=== PATIENT | female | born 1945 | race Two or more races ===

== ENCOUNTER 2017-07-09 08:20 | Outpatient (CLI) | payer OTHER | END 2017-07-09 14:47 | disposition home or self-care (01) | LOC: LAB 08:20 → MAMO-SONO 09:15 → LAB 14:47 | DX: C50.411 Malignant neoplasm of upper-outer quadrant of right female breast (principal); Z85.3 Personal history of malignant neoplasm of breast; B18.2 Chronic viral hepatitis C; D70.3 Neutropenia due to infection; E55.9 Vitamin D deficiency, unspecified; M81.0 Age-related osteoporosis without current pathological fracture; D50.8 Other iron deficiency anemias; D51.8 Other vitamin B12 deficiency anemias; I10 Essential (primary) hypertension; K90.89 Other intestinal malabsorption; E03.8 Other specified hypothyroidism; R97.0 Elevated carcinoembryonic antigen [CEA]; R97.8 Other abnormal tumor markers ==

== ENCOUNTER 2017-07-09 09:03 | Outpatient (CLI) | payer OTHER | END 2017-07-09 09:28 | disposition home or self-care (01) | LOC: SONOGRAMA 09:03 | DX: C50.411 Malignant neoplasm of upper-outer quadrant of right female breast (principal); Z85.3 Personal history of malignant neoplasm of breast; B18.2 Chronic viral hepatitis C; D70.3 Neutropenia due to infection; E55.9 Vitamin D deficiency, unspecified; M81.0 Age-related osteoporosis without current pathological fracture ==

== ENCOUNTER 2017-07-09 09:10 | Outpatient (CLI) | payer OTHER | END 2017-07-09 09:24 | disposition home or self-care (01) | LOC: RAD 09:10 | DX: C50.411 Malignant neoplasm of upper-outer quadrant of right female breast (principal); Z85.3 Personal history of malignant neoplasm of breast; B18.2 Chronic viral hepatitis C; D70.3 Neutropenia due to infection; E55.9 Vitamin D deficiency, unspecified; M81.0 Age-related osteoporosis without current pathological fracture ==

== ENCOUNTER → 2017-07-30 | Outpatient (CLI) | payer OTHER | END | disposition home or self-care (01) | LOC: RAD 11:05 | DX: C50.411 Malignant neoplasm of upper-outer quadrant of right female breast (principal); Z85.3 Personal history of malignant neoplasm of breast; B18.2 Chronic viral hepatitis C; D70.3 Neutropenia due to infection; E55.9 Vitamin D deficiency, unspecified; M81.0 Age-related osteoporosis without current pathological fracture; N20.0 Calculus of kidney; N21.0 Calculus in bladder ==

== ENCOUNTER → 2017-08-08 08:39 | Outpatient (CLI) | payer OTHER | END | disposition home or self-care (01) | LOC: LAB 08:39 | DX: M81.0 Age-related osteoporosis without current pathological fracture (principal); E55.9 Vitamin D deficiency, unspecified ==

== ENCOUNTER → 2017-09-03 09:14 | Outpatient (CLI) | payer OTHER | END | disposition home or self-care (01) | LOC: RAD 09:14 | DX: M16.11 Unilateral primary osteoarthritis, right hip (principal); M16.12 Unilateral primary osteoarthritis, left hip ==

== ENCOUNTER → 2017-10-21 | Outpatient (CLI) | payer OTHER | END | disposition home or self-care (01) | LOC: LAB 07:48 | DX: C50.411 Malignant neoplasm of upper-outer quadrant of right female breast (principal); Z85.3 Personal history of malignant neoplasm of breast; B18.2 Chronic viral hepatitis C; D70.3 Neutropenia due to infection; E55.9 Vitamin D deficiency, unspecified; M81.0 Age-related osteoporosis without current pathological fracture; N20.0 Calculus of kidney; N21.0 Calculus in bladder; D50.8 Other iron deficiency anemias; D51.8 Other vitamin B12 deficiency anemias; I10 Essential (primary) hypertension; K90.89 Other intestinal malabsorption; D68.8 Other specified coagulation defects; R97.0 Elevated carcinoembryonic antigen [CEA] ==

== ENCOUNTER 2017-10-27 09:56 | Outpatient (CLI) | payer OTHER | END 2017-10-27 10:30 | disposition home or self-care (01) | LOC: NUCLEAR 09:56 | DX: M81.0 Age-related osteoporosis without current pathological fracture (principal) ==

== ENCOUNTER 2017-12-12 07:33 | Outpatient (CLI) | payer OTHER | END 2017-12-12 07:47 | disposition home or self-care (01) | LOC: LAB 07:33 | DX: C50.411 Malignant neoplasm of upper-outer quadrant of right female breast (principal); Z85.3 Personal history of malignant neoplasm of breast; B18.2 Chronic viral hepatitis C; D70.3 Neutropenia due to infection; E55.9 Vitamin D deficiency, unspecified; M81.0 Age-related osteoporosis without current pathological fracture; N20.0 Calculus of kidney; N21.0 Calculus in bladder; M10.9 Gout, unspecified; E21.2 Other hyperparathyroidism; E83.52 Hypercalcemia ==

== ENCOUNTER 2017-12-16 09:16 | Outpatient (CLI) | payer OTHER | END 2017-12-16 09:23 | disposition home or self-care (01) | LOC: SONOGRAMA 09:16 | DX: K82.4 Cholesterolosis of gallbladder (principal) ==

== ENCOUNTER 2017-12-19 08:25 | Outpatient (CLI) | payer OTHER | END 2017-12-19 08:34 | disposition home or self-care (01) | LOC: LAB 08:25 | DX: C50.411 Malignant neoplasm of upper-outer quadrant of right female breast (principal); Z85.3 Personal history of malignant neoplasm of breast; B18.2 Chronic viral hepatitis C; D70.3 Neutropenia due to infection; E55.9 Vitamin D deficiency, unspecified; M81.0 Age-related osteoporosis without current pathological fracture; N20.0 Calculus of kidney; N21.0 Calculus in bladder; M10.9 Gout, unspecified; E21.3 Hyperparathyroidism, unspecified; E83.52 Hypercalcemia ==

== ENCOUNTER 2018-01-07 08:44 | Outpatient (CLI) | payer OTHER | END 2018-01-07 08:49 | disposition home or self-care (01) | LOC: LAB 08:44 | DX: Z12.11 Encounter for screening for malignant neoplasm of colon (principal) ==

== ENCOUNTER 2018-01-12 09:39 | Outpatient (CLI) | payer OTHER | END 2018-01-12 11:13 | disposition home or self-care (01) | LOC: TOM 09:39 | DX: N20.0 Calculus of kidney (principal) ==

== ENCOUNTER 2018-01-14 10:34 | Outpatient (CLI) | payer OTHER | END 2018-01-14 10:38 | disposition home or self-care (01) | LOC: LAB 10:34 | DX: N39.0 Urinary tract infection, site not specified (principal) ==

== ENCOUNTER 2018-01-16 10:24 | Outpatient (CLI) | payer OTHER | END 2018-01-16 10:31 | disposition home or self-care (01) | LOC: NUCLEAR 10:24 | DX: E83.52 Hypercalcemia (principal); C50.411 Malignant neoplasm of upper-outer quadrant of right female breast; Z85.3 Personal history of malignant neoplasm of breast; B18.2 Chronic viral hepatitis C; D70.3 Neutropenia due to infection; E55.9 Vitamin D deficiency, unspecified; M81.0 Age-related osteoporosis without current pathological fracture; N20.0 Calculus of kidney; N21.0 Calculus in bladder; E21.0 Primary hyperparathyroidism; D35.1 Benign neoplasm of parathyroid gland | CPT/HCPCS: 78070; A9500 ==

== ENCOUNTER 2018-02-18 09:03 | Outpatient (CLI) | payer OTHER | END 2018-02-18 09:18 | disposition home or self-care (01) | LOC: LAB 09:03 | DX: C50.411 Malignant neoplasm of upper-outer quadrant of right female breast (principal); Z85.3 Personal history of malignant neoplasm of breast; B18.2 Chronic viral hepatitis C; D70.3 Neutropenia due to infection; E55.9 Vitamin D deficiency, unspecified; M81.0 Age-related osteoporosis without current pathological fracture; N20.0 Calculus of kidney; N21.0 Calculus in bladder; E21.0 Primary hyperparathyroidism; D35.1 Benign neoplasm of parathyroid gland; D50.8 Other iron deficiency anemias; I10 Essential (primary) hypertension; D51.8 Other vitamin B12 deficiency anemias; R97.0 Elevated carcinoembryonic antigen [CEA]; R97.8 Other abnormal tumor markers ==

== ENCOUNTER 2018-04-01 09:19 | Outpatient (CLI) | payer OTHER | END 2018-04-01 09:24 | disposition home or self-care (01) | LOC: LAB 09:19 | DX: N81.0 Urethrocele (principal); E55.9 Vitamin D deficiency, unspecified ==

== ENCOUNTER 2018-05-02 09:20 | Outpatient (CLI) | payer OTHER | END 2018-05-02 09:26 | disposition home or self-care (01) | LOC: SONOGRAMA 09:20 | DX: M65.811 Other synovitis and tenosynovitis, right shoulder (principal) ==

== ENCOUNTER → 2018-06-03 08:23 | Outpatient (CLI) | payer OTHER | END | disposition home or self-care (01) | LOC: LAB 08:23 | DX: E83.51 Hypocalcemia (principal); M81.0 Age-related osteoporosis without current pathological fracture ==

== ENCOUNTER 2018-08-19 09:53 | Outpatient (CLI) | payer OTHER | END 2018-08-19 10:09 | disposition home or self-care (01) | LOC: LAB 09:53 | DX: E55.9 Vitamin D deficiency, unspecified (principal); C50.411 Malignant neoplasm of upper-outer quadrant of right female breast; Z85.3 Personal history of malignant neoplasm of breast; D70.3 Neutropenia due to infection; M81.0 Age-related osteoporosis without current pathological fracture; N20.0 Calculus of kidney; N21.0 Calculus in bladder; D35.1 Benign neoplasm of parathyroid gland; D50.8 Other iron deficiency anemias; D51.8 Other vitamin B12 deficiency anemias; I10 Essential (primary) hypertension; R97.0 Elevated carcinoembryonic antigen [CEA]; R97.8 Other abnormal tumor markers; K90.89 Other intestinal malabsorption ==

== ENCOUNTER → 2018-08-22 | Outpatient (CLI) | payer OTHER | END | disposition home or self-care (01) | LOC: MAMO-SONO 08:45 → RAD 08:49 | DX: C50.411 Malignant neoplasm of upper-outer quadrant of right female breast (principal); Z85.3 Personal history of malignant neoplasm of breast; B18.2 Chronic viral hepatitis C; D70.3 Neutropenia due to infection; E55.9 Vitamin D deficiency, unspecified; M81.0 Age-related osteoporosis without current pathological fracture; N20.0 Calculus of kidney; N21.0 Calculus in bladder; E21.0 Primary hyperparathyroidism; D35.1 Benign neoplasm of parathyroid gland ==

== ENCOUNTER 2018-10-07 08:13 | Outpatient (CLI) | payer OTHER | END 2018-10-07 08:24 | disposition home or self-care (01) | LOC: LAB 08:13 | DX: E55.9 Vitamin D deficiency, unspecified (principal); M81.0 Age-related osteoporosis without current pathological fracture ==

== ENCOUNTER → 2019-01-27 09:36 | Outpatient (CLI) | payer OTHER | END | disposition home or self-care (01) | LOC: LAB 09:36 | DX: B96.81 Helicobacter pylori [H. pylori] as the cause of diseases classified elsewhere (principal) ==

== ENCOUNTER 2019-02-17 08:05 | Outpatient (CLI) | payer OTHER | END 2019-02-17 12:13 | disposition home or self-care (01) | LOC: LAB 08:05 | DX: D50.8 Other iron deficiency anemias (principal); D51.8 Other vitamin B12 deficiency anemias; E78.2 Mixed hyperlipidemia; C50.411 Malignant neoplasm of upper-outer quadrant of right female breast; R97.0 Elevated carcinoembryonic antigen [CEA]; R91.8 Other nonspecific abnormal finding of lung field; D51.1 Vitamin B12 deficiency anemia due to selective vitamin B12 malabsorption with proteinuria; I10 Essential (primary) hypertension; K90.89 Other intestinal malabsorption ==

== ENCOUNTER 2019-05-03 07:47 | Outpatient (CLI) | payer OTHER | END 2019-05-03 07:52 | disposition home or self-care (01) | LOC: LAB 07:47 | DX: R73.09 Other abnormal glucose (principal); E78.00 Pure hypercholesterolemia, unspecified; E55.9 Vitamin D deficiency, unspecified; M81.0 Age-related osteoporosis without current pathological fracture ==

== ENCOUNTER 2019-08-18 08:08 | Outpatient (CLI) | payer OTHER | END 2019-08-18 08:13 | disposition home or self-care (01) | LOC: LAB 08:08 | PROVIDERS: ATTEND Internal Medicine Hematology & Oncology | DX: D50.8 Other iron deficiency anemias (principal); I10 Essential (primary) hypertension; C50.411 Malignant neoplasm of upper-outer quadrant of right female breast; Z85.3 Personal history of malignant neoplasm of breast; B18.2 Chronic viral hepatitis C; D70.3 Neutropenia due to infection; E55.9 Vitamin D deficiency, unspecified; M81.0 Age-related osteoporosis without current pathological fracture; N20.0 Calculus of kidney; N21.0 Calculus in bladder; D35.1 Benign neoplasm of parathyroid gland; D51.8 Other vitamin B12 deficiency anemias; R97.0 Elevated carcinoembryonic antigen [CEA]; R97.8 Other abnormal tumor markers ==

== ENCOUNTER 2019-08-23 07:30 | Outpatient (CLI) | payer OTHER | END 2019-08-23 07:40 | disposition home or self-care (01) | LOC: RAD 07:30 → MAMO-SONO 07:45 | PROVIDERS: ATTEND Internal Medicine Hematology & Oncology | DX: C50.411 Malignant neoplasm of upper-outer quadrant of right female breast (principal); Z85.3 Personal history of malignant neoplasm of breast; B18.2 Chronic viral hepatitis C; D70.3 Neutropenia due to infection; E55.9 Vitamin D deficiency, unspecified; M81.0 Age-related osteoporosis without current pathological fracture; N20.0 Calculus of kidney; N21.0 Calculus in bladder; D35.1 Benign neoplasm of parathyroid gland ==

== ENCOUNTER 2019-10-30 13:42 | Outpatient (CLI) | payer OTHER | END 2019-10-30 13:58 | disposition home or self-care (01) | LOC: NUCLEAR 13:42 | PROVIDERS: ATTEND Internal Medicine Rheumatology | DX: M81.0 Age-related osteoporosis without current pathological fracture (principal) ==

== ENCOUNTER → 2020-02-04 08:06 | Outpatient (CLI) | payer OTHER | END | disposition home or self-care (01) | LOC: LAB 08:06 | PROVIDERS: ATTEND Internal Medicine Rheumatology | DX: E55.9 Vitamin D deficiency, unspecified (principal) ==

== ENCOUNTER 2020-02-13 08:30 | Outpatient (CLI) | payer OTHER | END 2020-02-13 08:38 | disposition home or self-care (01) | LOC: LAB 08:30 | PROVIDERS: ATTEND Internal Medicine Hematology & Oncology | DX: C50.411 Malignant neoplasm of upper-outer quadrant of right female breast (principal); Z85.3 Personal history of malignant neoplasm of breast; B18.2 Chronic viral hepatitis C; D70.3 Neutropenia due to infection; E55.9 Vitamin D deficiency, unspecified; D50.8 Other iron deficiency anemias; I10 Essential (primary) hypertension; D51.8 Other vitamin B12 deficiency anemias; C50.919 Malignant neoplasm of unspecified site of unspecified female breast; R97.8 Other abnormal tumor markers; R97.0 Elevated carcinoembryonic antigen [CEA]; M81.0 Age-related osteoporosis without current pathological fracture; N20.0 Calculus of kidney; N21.0 Calculus in bladder; E21.0 Primary hyperparathyroidism; D35.1 Benign neoplasm of parathyroid gland ==

== ENCOUNTER 2020-07-05 08:00 | Outpatient (CLI) | payer OTHER | END 2020-07-05 08:05 | disposition home or self-care (01) | LOC: LAB 08:00 | PROVIDERS: ATTEND General Practice | DX: D64.9 Anemia, unspecified (principal); E78.2 Mixed hyperlipidemia; R73.09 Other abnormal glucose; E03.9 Hypothyroidism, unspecified; E56.9 Vitamin deficiency, unspecified; E55.9 Vitamin D deficiency, unspecified; I11.9 Hypertensive heart disease without heart failure; Z12.11 Encounter for screening for malignant neoplasm of colon ==

== ENCOUNTER → 2020-08-30 08:03 | Outpatient (CLI) | payer OTHER | END | disposition home or self-care (01) | LOC: LAB 08:03 → RAD 08:03 | PROVIDERS: ATTEND Internal Medicine Hematology & Oncology | DX: C50.411 Malignant neoplasm of upper-outer quadrant of right female breast (principal); Z85.3 Personal history of malignant neoplasm of breast; B18.2 Chronic viral hepatitis C; D70.3 Neutropenia due to infection; E55.9 Vitamin D deficiency, unspecified; M81.0 Age-related osteoporosis without current pathological fracture; N20.0 Calculus of kidney; N21.0 Calculus in bladder; E21.0 Primary hyperparathyroidism; D35.1 Benign neoplasm of parathyroid gland; D50.8 Other iron deficiency anemias; R79.9 Abnormal finding of blood chemistry, unspecified; I10 Essential (primary) hypertension; R74.02 Elevation of levels of lactic acid dehydrogenase [LDH]; K76.89 Other specified diseases of liver; D51.8 Other vitamin B12 deficiency anemias; E03.8 Other specified hypothyroidism; C50.919 Malignant neoplasm of unspecified site of unspecified female breast; R97.8 Other abnormal tumor markers; R97.0 Elevated carcinoembryonic antigen [CEA] ==

== ENCOUNTER 2020-09-16 07:55 | Outpatient (CLI) | payer OTHER | END 2020-09-16 08:04 | disposition home or self-care (01) | LOC: SONOGRAMA 07:55 → MAMO-SONO 08:15 | PROVIDERS: ATTEND Internal Medicine Hematology & Oncology | DX: N20.0 Calculus of kidney (principal); N21.0 Calculus in bladder; B18.2 Chronic viral hepatitis C; D70.3 Neutropenia due to infection; C50.411 Malignant neoplasm of upper-outer quadrant of right female breast; Z85.3 Personal history of malignant neoplasm of breast; E55.9 Vitamin D deficiency, unspecified; M81.0 Age-related osteoporosis without current pathological fracture; D35.1 Benign neoplasm of parathyroid gland ==

== ENCOUNTER 2021-02-14 07:57 | Outpatient (CLI) | payer OTHER | END 2021-02-14 07:58 | disposition home or self-care (01) | LOC: LAB 07:57 | PROVIDERS: ATTEND Internal Medicine Hematology & Oncology | DX: D64.89 Other specified anemias (principal); E78.2 Mixed hyperlipidemia; E03.8 Other specified hypothyroidism; E56.9 Vitamin deficiency, unspecified; E55.9 Vitamin D deficiency, unspecified; I11.9 Hypertensive heart disease without heart failure; D50.8 Other iron deficiency anemias; R79.89 Other specified abnormal findings of blood chemistry; I10 Essential (primary) hypertension; R74.02 Elevation of levels of lactic acid dehydrogenase [LDH]; K76.89 Other specified diseases of liver; D51.8 Other vitamin B12 deficiency anemias; C50.919 Malignant neoplasm of unspecified site of unspecified female breast; R97.8 Other abnormal tumor markers; R97.0 Elevated carcinoembryonic antigen [CEA]; C50.411 Malignant neoplasm of upper-outer quadrant of right female breast; Z85.3 Personal history of malignant neoplasm of breast; B18.2 Chronic viral hepatitis C; D70.3 Neutropenia due to infection; M81.0 Age-related osteoporosis without current pathological fracture; N20.0 Calculus of kidney; N21.0 Calculus in bladder; E21.0 Primary hyperparathyroidism; D35.1 Benign neoplasm of parathyroid gland ==

== ENCOUNTER 2021-06-13 08:19 | Outpatient (CLI) | payer OTHER | END 2021-06-13 09:53 | disposition home or self-care (01) | LOC: LAB 08:19 | DX: D64.9 Anemia, unspecified (principal); E78.2 Mixed hyperlipidemia; R73.09 Other abnormal glucose; E03.9 Hypothyroidism, unspecified; E56.9 Vitamin deficiency, unspecified; E55.9 Vitamin D deficiency, unspecified; I11.9 Hypertensive heart disease without heart failure; Z12.11 Encounter for screening for malignant neoplasm of colon ==

== ENCOUNTER 2021-07-14 09:32 | Outpatient (CLI) | payer OTHER | END 2021-07-14 09:41 | disposition home or self-care (01) | LOC: SONOGRAMA 09:32 | PROVIDERS: ATTEND General Practice | DX: R31.9 Hematuria, unspecified (principal); M54.50 Low back pain, unspecified ==

== ENCOUNTER 2021-09-19 07:44 | Outpatient (CLI) | payer OTHER | END 2021-09-19 07:45 | disposition home or self-care (01) | LOC: LAB 07:44 | PROVIDERS: ATTEND Internal Medicine Hematology & Oncology | DX: D50.8 Other iron deficiency anemias (principal); R79.9 Abnormal finding of blood chemistry, unspecified; I10 Essential (primary) hypertension; R74.02 Elevation of levels of lactic acid dehydrogenase [LDH]; K76.89 Other specified diseases of liver; D51.8 Other vitamin B12 deficiency anemias; D55.9 Anemia due to enzyme disorder, unspecified; E03.8 Other specified hypothyroidism; C50.919 Malignant neoplasm of unspecified site of unspecified female breast; R97.8 Other abnormal tumor markers; R97.0 Elevated carcinoembryonic antigen [CEA]; C50.411 Malignant neoplasm of upper-outer quadrant of right female breast; Z85.3 Personal history of malignant neoplasm of breast; B18.2 Chronic viral hepatitis C; D70.3 Neutropenia due to infection; E55.9 Vitamin D deficiency, unspecified; M81.0 Age-related osteoporosis without current pathological fracture; N20.0 Calculus of kidney; N21.0 Calculus in bladder; E21.0 Primary hyperparathyroidism; D35.1 Benign neoplasm of parathyroid gland ==

== ENCOUNTER 2021-11-02 09:20 | Outpatient (CLI) | payer OTHER | END 2021-11-02 09:23 | disposition home or self-care (01) | LOC: NUCLEAR 09:20 | PROVIDERS: ATTEND Internal Medicine Rheumatology | DX: M81.0 Age-related osteoporosis without current pathological fracture (principal) ==

== ENCOUNTER 2021-11-14 07:48 | Outpatient (CLI) | payer OTHER | END 2021-11-14 07:51 | disposition home or self-care (01) | LOC: LAB 07:48 | PROVIDERS: ATTEND Internal Medicine Rheumatology | DX: M81.0 Age-related osteoporosis without current pathological fracture (principal); E55.9 Vitamin D deficiency, unspecified ==

== ENCOUNTER 2021-12-29 08:32 | Outpatient (CLI) | payer OTHER | END 2021-12-29 08:38 | disposition home or self-care (01) | LOC: SONOGRAMA 08:32 | PROVIDERS: ATTEND Specialist | DX: K82.4 Cholesterolosis of gallbladder (principal) ==

== ENCOUNTER 2022-02-23 07:53 | Outpatient (CLI) | payer OTHER | END 2022-02-23 08:28 | disposition home or self-care (01) | LOC: LAB 07:53 | PROVIDERS: ATTEND Internal Medicine Hematology & Oncology | DX: D50.8 Other iron deficiency anemias (principal); R79.9 Abnormal finding of blood chemistry, unspecified; I10 Essential (primary) hypertension; R74.02 Elevation of levels of lactic acid dehydrogenase [LDH]; K76.89 Other specified diseases of liver; D51.8 Other vitamin B12 deficiency anemias; E55.9 Vitamin D deficiency, unspecified; E03.8 Other specified hypothyroidism; C50.919 Malignant neoplasm of unspecified site of unspecified female breast; R97.8 Other abnormal tumor markers ==

== ENCOUNTER 2022-02-23 09:06 | Outpatient (CLI) | payer OTHER | END 2022-02-23 09:12 | disposition home or self-care (01) | LOC: RAD 09:06 | PROVIDERS: ATTEND Internal Medicine Hematology & Oncology | DX: C50.411 Malignant neoplasm of upper-outer quadrant of right female breast (principal); Z85.3 Personal history of malignant neoplasm of breast; B18.2 Chronic viral hepatitis C; D70.3 Neutropenia due to infection; E55.9 Vitamin D deficiency, unspecified; M81.0 Age-related osteoporosis without current pathological fracture; N20.0 Calculus of kidney; N21.0 Calculus in bladder; E21.0 Primary hyperparathyroidism; D35.1 Benign neoplasm of parathyroid gland ==

== ENCOUNTER 2022-03-09 08:11 | Outpatient (CLI) | payer OTHER | END 2022-03-09 08:16 | disposition home or self-care (01) | LOC: SONOGRAMA 08:11 | PROVIDERS: ATTEND Internal Medicine Hematology & Oncology | DX: C50.411 Malignant neoplasm of upper-outer quadrant of right female breast (principal); Z85.3 Personal history of malignant neoplasm of breast; N20.0 Calculus of kidney; N21.0 Calculus in bladder; E21.0 Primary hyperparathyroidism; D35.1 Benign neoplasm of parathyroid gland; B18.2 Chronic viral hepatitis C; D70.3 Neutropenia due to infection; M81.0 Age-related osteoporosis without current pathological fracture ==

== ENCOUNTER 2022-05-15 07:55 | Outpatient (CLI) | payer OTHER | END 2022-05-15 07:56 | disposition home or self-care (01) | LOC: LAB 07:55 | PROVIDERS: ATTEND Internal Medicine Rheumatology | DX: M81.0 Age-related osteoporosis without current pathological fracture (principal); E55.9 Vitamin D deficiency, unspecified ==

== ENCOUNTER 2022-06-25 08:40 | Outpatient (CLI) | payer OTHER | END 2022-06-25 12:46 | disposition home or self-care (01) | LOC: LAB 08:40 | PROVIDERS: ATTEND Internal Medicine Hematology & Oncology | DX: D50.8 Other iron deficiency anemias (principal); R79.9 Abnormal finding of blood chemistry, unspecified; I10 Essential (primary) hypertension; R74.02 Elevation of levels of lactic acid dehydrogenase [LDH]; K76.89 Other specified diseases of liver; C50.819 Malignant neoplasm of overlapping sites of unspecified female breast; R97.8 Other abnormal tumor markers; R97.0 Elevated carcinoembryonic antigen [CEA]; E83.52 Hypercalcemia; C50.411 Malignant neoplasm of upper-outer quadrant of right female breast; Z85.3 Personal history of malignant neoplasm of breast; B18.2 Chronic viral hepatitis C; D70.3 Neutropenia due to infection; M81.0 Age-related osteoporosis without current pathological fracture; N21.0 Calculus in bladder; D35.1 Benign neoplasm of parathyroid gland ==

== ENCOUNTER 2022-07-07 10:41 | Outpatient (CLI) | payer OTHER | END 2022-07-07 10:42 | disposition home or self-care (01) | LOC: LAB 10:41 | DX: N39.0 Urinary tract infection, site not specified (principal) ==

== ENCOUNTER 2022-07-09 10:10 | Outpatient (CLI) | payer OTHER | END 2022-07-09 10:20 | disposition home or self-care (01) | LOC: SONOGRAMA 10:10 | PROVIDERS: ATTEND General Practice | DX: N20.0 Calculus of kidney (principal) ==

== ENCOUNTER 2022-08-14 07:37 | Outpatient (CLI) | payer OTHER | END 2022-08-14 07:39 | disposition home or self-care (01) | LOC: LAB 07:37 | DX: N30.00 Acute cystitis without hematuria (principal) ==

== ENCOUNTER 2022-09-08 07:37 | Outpatient (CLI) | payer OTHER | END 2022-09-08 07:39 | disposition home or self-care (01) | LOC: LAB 07:37 | DX: R31.21 Asymptomatic microscopic hematuria (principal) ==

== ENCOUNTER 2022-09-20 08:43 | Outpatient (CLI) | payer OTHER | END 2022-09-20 08:51 | disposition home or self-care (01) | LOC: TOM 08:43 | DX: R31.21 Asymptomatic microscopic hematuria (principal) | CPT/HCPCS: 74177; Q9965 ==

== ENCOUNTER 2022-09-25 08:27 | Outpatient (CLI) | payer OTHER | END 2022-09-25 23:00 | disposition home or self-care (01) | LOC: LAB 08:27 | PROVIDERS: ATTEND Obstetrics & Gynecology | DX: R31.21 Asymptomatic microscopic hematuria (principal) ==

== ENCOUNTER 2022-11-16 11:40 | Outpatient (CLI) | payer OTHER | END 2022-11-16 11:47 | disposition home or self-care (01) | LOC: RAD 11:40 | DX: M25.531 Pain in right wrist (principal) ==

== ENCOUNTER 2022-12-27 08:31 | Outpatient (CLI) | payer OTHER | END 2022-12-27 08:51 | disposition home or self-care (01) | LOC: SONOGRAMA 08:31 | PROVIDERS: ATTEND Internal Medicine Hematology & Oncology | DX: B18.2 Chronic viral hepatitis C (principal); D70.3 Neutropenia due to infection; E55.9 Vitamin D deficiency, unspecified; M81.0 Age-related osteoporosis without current pathological fracture; N20.0 Calculus of kidney; N21.0 Calculus in bladder; E21.0 Primary hyperparathyroidism; D35.1 Benign neoplasm of parathyroid gland; Z85.3 Personal history of malignant neoplasm of breast ==

== ENCOUNTER 2023-01-28 09:40 | Outpatient (CLI) | payer OTHER | END 2023-01-28 09:59 | disposition home or self-care (01) | LOC: SONOGRAMA 09:40 | DX: M65.811 Other synovitis and tenosynovitis, right shoulder (principal) ==

== ENCOUNTER 2023-06-11 08:26 | Outpatient (CLI) | payer OTHER ==
[2023-06-11 10:16] LABS: HEMATOCRIT 41.1 % (36.0-45.00); HEMOGLOBIN 14.1 g/dL (12.0-15.00); MEAN CELL VOLUME 99.2 fL (80.00-100.00); MEAN CORPUSCULAR HEMOGLOBIN 34.1 pg (27.00-32.0); MEAN CORPUSCULAR HGB CONC 34.4 g/dl (32.0-36.0); PLATELET COUNT 169 K/uL (150-450); RED BLOOD COUNT 4.14 M/uL (4.00-6.00); RED CELL DISTRIBUTION WIDTH 13.2 % (11.5-14.5)
[2023-06-11 10:18] LABS: URINE APPEARANCE Clear; URINE BILIRRUBIN Negative (NEGATIVE); URINE BLOOD NHT; URINE COLOR Yellow; URINE GLUCOSE Negative (NEGATIVE); URINE LEUKOCYTE Trace; URINE NITRATE Negative; URINE PROTEIN Trace (NEGATIVE); URINE UROBILINOGEN 0.2 E.U./dl
[2023-06-11 10:23] LABS: URINE BACTERIA 54.1 uL (0.0-1933); URINE EPITHELIAL CELLS 6.6 uL (0.0-38.8); URINE RBC 96.1 uL (0.0-20.8); URINE WBC 9.1 uL (0.0-23.2)
[2023-06-11 10:30] LABS: % SATURACION 46.4 % (15-50); ALBUMIN 3.8 gm/dL (3.4-5.0); BILIRUBIN TOTAL 0.47 mg/dL (0.3-1.2); CALCIUM 8.7 mg/dL (8.5-10.1); CHOL HDL RATIO 2.8 (0-5.0); CREATININE SERUM 0.74 mg/dL (0.55-1.02); FERRITIN 145.4 NG/ML (8-252); GFR 76.3; GLOBULINA 3.5 G/DL (2.4-3.5); POTASSIUM 4.3 mEq/L (3.5-5.1); TOTAL PROTEIN 7.3 gm/dL (6.4-8.2); TSH 1.24 uIU/mL (0.358-3.74)
[2023-06-11 13:15] LABS: MANUAL PLATELET COUNT 282
[2023-06-13 11:58] LABS: VITAMIN D3 25 HYDROXY 62.03 ng/ml (30-120)
== END 2023-06-11 08:30 | disposition home or self-care (01) ==
LOC: LAB 08:26
PROVIDERS: ATTEND Internal Medicine Cardiovascular Disease
DX: C50.411 Malignant neoplasm of upper-outer quadrant of right female breast (principal); Z85.3 Personal history of malignant neoplasm of breast; B18.2 Chronic viral hepatitis C; D70.3 Neutropenia due to infection; E55.9 Vitamin D deficiency, unspecified; M81.0 Age-related osteoporosis without current pathological fracture; N20.0 Calculus of kidney; N21.0 Calculus in bladder; E21.0 Primary hyperparathyroidism; D35.1 Benign neoplasm of parathyroid gland; D50.8 Other iron deficiency anemias; I10 Essential (primary) hypertension; R74.02 Elevation of levels of lactic acid dehydrogenase [LDH]; K76.89 Other specified diseases of liver; C50.919 Malignant neoplasm of unspecified site of unspecified female breast; R97.8 Other abnormal tumor markers; C56.9 Malignant neoplasm of unspecified ovary; R97.1 Elevated cancer antigen 125 [CA 125]; D64.9 Anemia, unspecified; N39.0 Urinary tract infection, site not specified; R10.9 Unspecified abdominal pain; E03.9 Hypothyroidism, unspecified; E78.5 Hyperlipidemia, unspecified; R80.9 Proteinuria, unspecified

== ENCOUNTER 2023-11-04 12:51 | Outpatient (CLI) | payer OTHER | END 2023-11-04 12:52 | disposition home or self-care (01) | LOC: NUCLEAR 12:51 | PROVIDERS: ATTEND Internal Medicine Rheumatology | DX: M81.0 Age-related osteoporosis without current pathological fracture (principal) ==

== ENCOUNTER 2023-12-17 07:57 | Outpatient (CLI) | payer OTHER ==
[2023-12-17 10:55] LABS: HEMATOCRIT 40.1 % (36.0-45.00); HEMOGLOBIN 13.9 g/dL (12.0-15.00); MEAN CELL VOLUME 98.5 fL (80.00-100.00); MEAN CORPUSCULAR HEMOGLOBIN 34.1 pg (27.00-32.0); MEAN CORPUSCULAR HGB CONC 34.6 g/dl (32.0-36.0); PLATELET COUNT 163 K/uL (150-450); RED BLOOD COUNT 4.07 M/uL (4.00-6.00); RED CELL DISTRIBUTION WIDTH 13.1 % (11.5-14.5)
[2023-12-17 11:26] LABS: % SATURACION 40.2 % (15-50); ALBUMIN 3.9 gm/dL (3.4-5.0); BILIRUBIN TOTAL 0.58 mg/dL (0.3-1.2); CALCIUM 8.7 mg/dL (8.5-10.1); CREATININE SERUM 0.63 mg/dL (0.55-1.02); FERRITIN 145.1 NG/ML (8-252); GFR 91.88; GLOBULINA 3.5 G/DL (2.4-3.5); POTASSIUM 4.26 mEq/L (3.5-5.1); TOTAL PROTEIN 7.4 gm/dL (6.4-8.2)
[2023-12-19 08:20] LABS: MANUAL PLATELET COUNT 290; PLATELET ESTIMATE NORMAL (NORMAL)
[2023-12-19 11:07] LABS: FOLIC ACID > 20.00 ng/ml (4.78-20); VITAMIN D3 25 HYDROXY 61.67 ng/ml (30-120)
[2023-12-20 15:07] LABS: CA 125 5.1 U/mL (0.0-38.1); CA 15-3 22.1 U/mL (0.0-25.0)
== END 2023-12-17 07:58 | disposition home or self-care (01) ==
LOC: LAB 07:57
PROVIDERS: ATTEND Internal Medicine Hematology & Oncology
DX: C50.411 Malignant neoplasm of upper-outer quadrant of right female breast (principal); Z85.3 Personal history of malignant neoplasm of breast; B18.2 Chronic viral hepatitis C; D70.3 Neutropenia due to infection; E55.9 Vitamin D deficiency, unspecified; M81.0 Age-related osteoporosis without current pathological fracture; N20.0 Calculus of kidney; N21.0 Calculus in bladder; E21.0 Primary hyperparathyroidism; D35.1 Benign neoplasm of parathyroid gland; D50.8 Other iron deficiency anemias; I10 Essential (primary) hypertension; R74.02 Elevation of levels of lactic acid dehydrogenase [LDH]; K76.89 Other specified diseases of liver; C56.9 Malignant neoplasm of unspecified ovary

== ENCOUNTER 2023-12-24 09:25 | Outpatient (CLI) | payer OTHER | END 2023-12-24 09:36 | disposition home or self-care (01) | LOC: RAD 09:25 | PROVIDERS: ATTEND Internal Medicine Hematology & Oncology | DX: C50.411 Malignant neoplasm of upper-outer quadrant of right female breast (principal); Z85.3 Personal history of malignant neoplasm of breast; B18.2 Chronic viral hepatitis C; D70.3 Neutropenia due to infection; E55.9 Vitamin D deficiency, unspecified; M81.0 Age-related osteoporosis without current pathological fracture; N20.0 Calculus of kidney; N21.0 Calculus in bladder; E21.0 Primary hyperparathyroidism; D35.1 Benign neoplasm of parathyroid gland ==

== ENCOUNTER 2023-12-29 08:15 | Outpatient (CLI) | payer OTHER | END 2023-12-29 08:16 | disposition home or self-care (01) | LOC: SONOGRAMA 08:15 | PROVIDERS: ATTEND Internal Medicine Hematology & Oncology | DX: C50.411 Malignant neoplasm of upper-outer quadrant of right female breast (principal); Z85.3 Personal history of malignant neoplasm of breast; B18.2 Chronic viral hepatitis C; D70.3 Neutropenia due to infection; E55.9 Vitamin D deficiency, unspecified; M81.0 Age-related osteoporosis without current pathological fracture; N20.0 Calculus of kidney; N21.0 Calculus in bladder; E21.0 Primary hyperparathyroidism; D35.1 Benign neoplasm of parathyroid gland ==

== ENCOUNTER 2024-01-14 08:02 | Outpatient (CLI) | payer OTHER ==
[2024-01-14 09:10] LABS: PH,URINE 7.5 (5.0-8.0); URINE APPEARANCE Clear; URINE BILIRRUBIN Negative (NEGATIVE); URINE COLOR Yellow; URINE GLUCOSE Negative (NEGATIVE); URINE KETONE Negative (NEGATIVE); URINE LEUKOCYTE Trace; URINE NITRATE Negative; URINE PROTEIN Negative (NEGATIVE); URINE UROBILINOGEN 0.2 E.U./dl
[2024-01-14 09:14] LABS: URINE BACTERIA 8.8 uL (0.0-1933); URINE EPITHELIAL CELLS 2.1 uL (0.0-38.8); URINE RBC 61.2 uL (0.0-20.8); URINE WBC 3.8 uL (0.0-23.2)
[2024-01-14 09:22] LABS: URINE BLOOD TRACE
[2024-01-14 09:27] LABS: HEMATOCRIT 40.8 % (36.0-45.00); HEMOGLOBIN 13.9 g/dL (12.0-15.00); MEAN CELL VOLUME 98.6 fL (80.00-100.00); MEAN CORPUSCULAR HEMOGLOBIN 33.6 pg (27.00-32.0); PLATELET COUNT 170 K/uL (150-450); RED BLOOD COUNT 4.13 M/uL (4.00-6.00); RED CELL DISTRIBUTION WIDTH 12.6 % (11.5-14.5)
[2024-01-14 09:58] LABS: ALBUMIN 3.7 gm/dL (3.4-5.0); BILIRUBIN TOTAL 0.5 mg/dL (0.3-1.2); CALCIUM 8.9 mg/dL (8.5-10.1); CHOL HDL RATIO 2.6 (0-5.0); CREATININE SERUM 0.73 mg/dL (0.55-1.02); GFR 77.51; GLOBULINA 3.4 G/DL (2.4-3.5); POTASSIUM 4.26 mEq/L (3.5-5.1); TOTAL PROTEIN 7.1 gm/dL (6.4-8.2); TSH 1.82 uIU/mL (0.358-3.74)
== END 2024-01-14 08:03 | disposition home or self-care (01) ==
LOC: LAB 08:02
PROVIDERS: ATTEND Internal Medicine Cardiovascular Disease
DX: D64.9 Anemia, unspecified (principal); N39.0 Urinary tract infection, site not specified; R10.9 Unspecified abdominal pain; E03.9 Hypothyroidism, unspecified; E78.5 Hyperlipidemia, unspecified; E55.9 Vitamin D deficiency, unspecified; E11.9 Type 2 diabetes mellitus without complications

== ENCOUNTER 2024-04-07 08:45 | Outpatient (CLI) | payer OTHER ==
[2024-04-07 09:43] LABS: URINE APPEARANCE Cloudy; URINE BACTERIA 18.3 uL (0.0-1933); URINE BILIRRUBIN Negative (NEGATIVE); URINE BLOOD Negative; URINE COLOR Yellow; URINE GLUCOSE Negative (NEGATIVE); URINE KETONE Negative (NEGATIVE); URINE LEUKOCYTE Negative; URINE NITRATE Negative; URINE PROTEIN Negative (NEGATIVE); URINE RBC 40.2 uL (0.0-20.8); URINE UROBILINOGEN 0.2 E.U./dl; URINE WBC 2.6 uL (0.0-23.2)
[2024-04-07 09:46] LABS: HEMATOCRIT 40.3 % (36.0-45.00); HEMOGLOBIN 13.9 g/dL (12.0-15.00); MEAN CELL VOLUME 97.3 fL (80.00-100.00); MEAN CORPUSCULAR HEMOGLOBIN 33.6 pg (27.00-32.0); MEAN CORPUSCULAR HGB CONC 34.6 g/dl (32.0-36.0); PLATELET COUNT 165 K/uL (150-450); RED BLOOD COUNT 4.15 M/uL (4.00-6.00); RED CELL DISTRIBUTION WIDTH 13.5 % (11.5-14.5)
[2024-04-07 10:10] LABS: ALBUMIN 3.6 gm/dL (3.4-5.0); BILIRUBIN TOTAL 0.44 mg/dL (0.3-1.2); CALCIUM 9.2 mg/dL (8.5-10.1); CHOL HDL RATIO 2.9 (0-5.0); CREATININE SERUM 0.67 mg/dL (0.55-1.02); GFR 85.35; GLOBULINA 3.3 G/DL (2.4-3.5); POTASSIUM 4.63 mEq/L (3.5-5.1); TOTAL PROTEIN 6.9 gm/dL (6.4-8.2); TSH 2.05 uIU/mL (0.358-3.74)
[2024-04-07 10:18] LABS: ob NEGATIVE (NEGATIVE)
[2024-04-07 10:31] LABS: URINE EPITHELIAL CELLS 0.9 uL (0.0-38.8)
[2024-04-08 14:22] LABS: VITAMIN D3 25 HYDROXY 53.52 ng/ml (30-120)
== END 2024-04-07 08:52 | disposition home or self-care (01) ==
LOC: LAB 08:45
PROVIDERS: ATTEND General Practice
DX: D64.9 Anemia, unspecified (principal); E86.0 Dehydration; E03.8 Other specified hypothyroidism; E55.9 Vitamin D deficiency, unspecified; E53.8 Deficiency of other specified B group vitamins; E11.65 Type 2 diabetes mellitus with hyperglycemia; Z12.11 Encounter for screening for malignant neoplasm of colon; I11.9 Hypertensive heart disease without heart failure; E78.2 Mixed hyperlipidemia; N39.0 Urinary tract infection, site not specified

== ENCOUNTER 2024-06-16 08:26 | Outpatient (CLI) | payer OTHER ==
[2024-06-16 09:56] LABS: HEMATOCRIT 40.7 % (36.0-45.00); HEMOGLOBIN 13.9 g/dL (12.0-15.00); MEAN CELL VOLUME 98.4 fL (80.00-100.00); MEAN CORPUSCULAR HEMOGLOBIN 33.7 pg (27.00-32.0); MEAN CORPUSCULAR HGB CONC 34.2 g/dl (32.0-36.0); PLATELET COUNT 162 K/uL (150-450); RED BLOOD COUNT 4.13 M/uL (4.00-6.00); RED CELL DISTRIBUTION WIDTH 12.9 % (11.5-14.5)
[2024-06-16 10:32] LABS: ALBUMIN 3.8 gm/dL (3.4-5.0); BILIRUBIN TOTAL 0.5 mg/dL (0.3-1.2); CALCIUM 8.7 mg/dL (8.5-10.1); CREATININE SERUM 0.63 mg/dL (0.55-1.02); FERRITIN 140.5 NG/ML (8-252); GFR 91.63; GLOBULINA 3.6 G/DL (2.4-3.5); POTASSIUM 4.2 mEq/L (3.5-5.1); TOTAL PROTEIN 7.4 gm/dL (6.4-8.2)
[2024-06-17 12:41] LABS: MANUAL PLATELET COUNT 172
[2024-06-17 12:42] LABS: PLATELET ESTIMATE NORMAL (NORMAL)
[2024-06-18 10:11] LABS: FOLIC ACID > 20.00 ng/ml (4.78-20); VITAMIN D3 25 HYDROXY 57.78 ng/ml (30-120)
[2024-06-19 09:10] LABS: CA 125 5.5 U/mL (0.0-38.1); CA 15-3 20.9 U/mL (0.0-25.0)
== END 2024-06-16 08:29 | disposition home or self-care (01) ==
LOC: LAB 08:26
PROVIDERS: ATTEND Internal Medicine Hematology & Oncology
DX: C50.411 Malignant neoplasm of upper-outer quadrant of right female breast (principal); Z85.3 Personal history of malignant neoplasm of breast; D70.3 Neutropenia due to infection; B18.2 Chronic viral hepatitis C; E55.9 Vitamin D deficiency, unspecified; M81.0 Age-related osteoporosis without current pathological fracture; N20.0 Calculus of kidney; N21.0 Calculus in bladder; E21.0 Primary hyperparathyroidism; D35.1 Benign neoplasm of parathyroid gland; D50.8 Other iron deficiency anemias; R79.9 Abnormal finding of blood chemistry, unspecified; I10 Essential (primary) hypertension; R74.02 Elevation of levels of lactic acid dehydrogenase [LDH]; K76.89 Other specified diseases of liver; C50.919 Malignant neoplasm of unspecified site of unspecified female breast; R97.0 Elevated carcinoembryonic antigen [CEA]

== ENCOUNTER 2024-07-21 09:13 | Outpatient (CLI) | payer OTHER ==
[2024-07-21 11:00] LABS: URINE APPEARANCE Cloudy; URINE BILIRRUBIN Negative (NEGATIVE); URINE BLOOD Negative; URINE COLOR Yellow; URINE GLUCOSE Negative (NEGATIVE); URINE KETONE Negative (NEGATIVE); URINE LEUKOCYTE Negative; URINE NITRATE Negative; URINE PROTEIN Negative (NEGATIVE); URINE UROBILINOGEN 0.2 E.U./dl
[2024-07-21 11:04] LABS: URINE BACTERIA 19.5 uL (0.0-1933); URINE EPITHELIAL CELLS 1.5 uL (0.0-38.8); URINE WBC 2.5 uL (0.0-23.2)
[2024-07-21 11:10] LABS: BASO % 0.5 % (0.1-1.2); EOS # 0.16 (0.04-0.54); EOS % 4.2 % (0.7-7.0); HEMATOCRIT 40.3 % (34.1-44.9); HEMOGLOBIN 13.9 g/dL (11.2-15.7); LYMPH # 0.78 (1.18-3.74); LYMPH % 20.3 % (19.3-53.1); MONO % 10.4 % (4.7-12.5); NEUT # 2.48 (1.56-6.13); NEUT % 64.3 % (34.0-71.1); PLATELET COUNT 184 K/uL (163-369); RED BLOOD COUNT 4.21 M/uL (3.93-5.22); RED CELL DISTRIBUTION WIDTH 12.3 % (11.6-14.4)
[2024-07-21 11:46] LABS: ALBUMIN 3.8 gm/dL (3.4-5.0); BILIRUBIN TOTAL 0.51 mg/dL (0.3-1.2); CALCIUM 8.6 mg/dL (8.5-10.1); CHOL HDL RATIO 2.9 (0-5.0); CREATININE SERUM 0.61 mg/dL (0.55-1.02); GFR 95.1; GLOBULINA 3.4 G/DL (2.4-3.5); POTASSIUM 4.52 mEq/L (3.5-5.1); TOTAL PROTEIN 7.2 gm/dL (6.4-8.2); TSH 0.976 uIU/mL (0.358-3.74)
== END 2024-07-21 09:22 | disposition home or self-care (01) ==
LOC: LAB 09:13
PROVIDERS: ATTEND Internal Medicine Cardiovascular Disease
DX: D64.9 Anemia, unspecified (principal); N39.0 Urinary tract infection, site not specified; R10.9 Unspecified abdominal pain; E03.9 Hypothyroidism, unspecified; E78.5 Hyperlipidemia, unspecified; R07.9 Chest pain, unspecified; E55.9 Vitamin D deficiency, unspecified; R80.9 Proteinuria, unspecified; E11.9 Type 2 diabetes mellitus without complications

== ENCOUNTER 2024-08-11 09:00 | Outpatient (CLI) | payer OTHER | END 2024-08-11 09:33 | disposition home or self-care (01) | LOC: LAB 09:00 | PROVIDERS: ATTEND General Practice | DX: E83.42 Hypomagnesemia (principal) ==

== ENCOUNTER 2024-08-11 09:42 | Outpatient (CLI) | payer OTHER | END 2024-08-11 09:44 | disposition home or self-care (01) | LOC: RAD 09:42 | PROVIDERS: ATTEND General Practice | DX: N20.0 Calculus of kidney (principal); R31.9 Hematuria, unspecified; R10.84 Generalized abdominal pain ==

== ENCOUNTER 2024-09-01 08:10 | Outpatient (CLI) | payer OTHER ==
[2024-09-01 09:41] LABS: URINE APPEARANCE Clear; URINE BILIRRUBIN Negative (NEGATIVE); URINE BLOOD Trace; URINE COLOR Yellow; URINE GLUCOSE Negative (NEGATIVE); URINE KETONE Negative (NEGATIVE); URINE LEUKOCYTE Negative; URINE NITRATE Negative; URINE PROTEIN Negative (NEGATIVE); URINE UROBILINOGEN 0.2 E.U./dl
[2024-09-01 09:49] LABS: URINE BACTERIA 15.8 uL (0.0-1933); URINE RBC 24.1 uL (0.0-20.8); URINE WBC 2.5 uL (0.0-23.2)
[2024-09-01 09:54] LABS: URINE CAST 0.14 uL (0.0-1.40)
== END 2024-09-01 08:11 | disposition home or self-care (01) ==
LOC: LAB 08:10
PROVIDERS: ATTEND General Practice
DX: R31.9 Hematuria, unspecified (principal)

== ENCOUNTER 2024-09-05 09:49 | Outpatient (CLI) | payer OTHER ==
[2024-09-05 11:45] LABS: FECAL LEUKOCYTES NEGATIVE (NEGATIVE)
== END 2024-09-05 09:53 | disposition home or self-care (01) ==
LOC: LAB 09:49
PROVIDERS: ATTEND General Practice
DX: K58.0 Irritable bowel syndrome with diarrhea (principal); R50.81 Fever presenting with conditions classified elsewhere

== ENCOUNTER → 2024-12-15 08:12 | Outpatient (CLI) | payer OTHER ==
[2024-12-15 10:53] LABS: BASO % 0.7 % (0.1-1.2); EOS # 0.13 (0.04-0.54); EOS % 4.3 % (0.7-7.0); LYMPH # 0.80 (1.18-3.74); LYMPH % 26.4 % (19.3-53.1); MEAN PLATELET VOLUME 10.60 fl (9.4-12.4); MONO # 0.37 (0.24-0.82); NEUT # 1.70 (1.56-6.13); NEUT % 56.1 % (34.0-71.1); RED CELL DISTRIBUTION WIDTH 12.3 % (11.6-14.4)
[2024-12-15 10:58] LABS: MONO % 12.2 % (4.7-12.5)
[2024-12-15 11:29] LABS: % SATURACION 34.3 % (15-50); ALT/SGPT 17.0 U/L (12-78); AST/SGOT 16.0 U/L (15-37); BILIRUBIN TOTAL 0.51 mg/dL (0.3-1.2); BUN CREA RATIO 24.0 (7.0-25.0); CREATININE SERUM 0.62 mg/dL (0.55-1.02); FE 94.0 ug/dl (50-170); GFR 93.34; GLOBULINA 3.6 G/DL (2.4-3.5); GLUCOSE FASTING 83.0 mg/dL (65-100); LDH 213.0 U/L (84-246); OSMOLALITY SERUM 287.0 MOSM/KG (275-295)
[2024-12-17 15:20] LABS: FOLIC ACID > 20.00 ng/ml (4.78-20); VITAMIN D3 25 HYDROXY 72.06 ng/ml (30-120)
[2024-12-18 09:08] LABS: CA 125 6.4 U/mL (0.0-38.1); CA 15-3 20.0 U/mL (0.0-25.0)
== END | disposition home or self-care (01) ==
LOC: LAB 08:12
PROVIDERS: ATTEND Internal Medicine Hematology & Oncology
DX: C50.411 Malignant neoplasm of upper-outer quadrant of right female breast (principal); Z85.3 Personal history of malignant neoplasm of breast; B18.2 Chronic viral hepatitis C; D70.3 Neutropenia due to infection; E55.9 Vitamin D deficiency, unspecified; M81.0 Age-related osteoporosis without current pathological fracture; N20.0 Calculus of kidney; N21.0 Calculus in bladder; E21.0 Primary hyperparathyroidism; D35.1 Benign neoplasm of parathyroid gland; D50.8 Other iron deficiency anemias; I10 Essential (primary) hypertension; R74.02 Elevation of levels of lactic acid dehydrogenase [LDH]; K76.89 Other specified diseases of liver; C50.919 Malignant neoplasm of unspecified site of unspecified female breast; C56.9 Malignant neoplasm of unspecified ovary; R97.0 Elevated carcinoembryonic antigen [CEA]

== ENCOUNTER 2024-12-15 08:19 | Outpatient (CLI) | payer OTHER | END 2024-12-15 08:22 | disposition home or self-care (01) | LOC: RAD 08:19 | PROVIDERS: ATTEND Internal Medicine Hematology & Oncology | DX: C50.411 Malignant neoplasm of upper-outer quadrant of right female breast (principal); Z85.3 Personal history of malignant neoplasm of breast; B18.2 Chronic viral hepatitis C; D70.3 Neutropenia due to infection; E55.9 Vitamin D deficiency, unspecified; M81.0 Age-related osteoporosis without current pathological fracture; N20.0 Calculus of kidney; N21.0 Calculus in bladder; E21.0 Primary hyperparathyroidism; D35.1 Benign neoplasm of parathyroid gland ==

== ENCOUNTER 2024-12-29 08:49 | Outpatient (CLI) | payer OTHER ==
[2024-12-29 11:11] LABS: URINE APPEARANCE Clear; URINE BILIRRUBIN Negative (NEGATIVE); URINE BLOOD Trace; URINE COLOR Yellow; URINE GLUCOSE Negative (NEGATIVE); URINE KETONE Negative (NEGATIVE); URINE LEUKOCYTE Negative; URINE NITRATE Negative; URINE PROTEIN Negative (NEGATIVE); URINE UROBILINOGEN 0.2 E.U./dl
[2024-12-29 11:17] LABS: URINE BACTERIA 16.8 uL (0.0-1933); URINE RBC 57.3 uL (0.0-20.8); URINE WBC 9.3 uL (0.0-23.2)
[2024-12-29 11:26] LABS: URINE CAST 0.00 uL (0.0-1.40); URINE EPITHELIAL CELLS 1.0 uL (0.0-38.8)
[2024-12-29 11:54] LABS: CHOL HDL RATIO 3.0 (0-5.0); HDL 75.0 mg/dl (40-60); LDL 127.0 mg/dl (0-130); TSH 1.08 uIU/mL (0.358-3.74); VLDL 21.0 (0-39)
== END 2024-12-29 08:54 | disposition home or self-care (01) ==
LOC: LAB 08:49
PROVIDERS: ATTEND Internal Medicine Cardiovascular Disease
DX: D64.9 Anemia, unspecified (principal); N39.0 Urinary tract infection, site not specified; R10.9 Unspecified abdominal pain; E03.9 Hypothyroidism, unspecified; E78.5 Hyperlipidemia, unspecified; R80.9 Proteinuria, unspecified; E11.9 Type 2 diabetes mellitus without complications